=== PATIENT | female | born 1990 | race African-American/Black ===

== ENCOUNTER 2020-07-13 20:26 | Emergency (ER) | payer OTHER ==
[~2020-07-13] VITALS: Ht 160 cm; Wt 63.5 kg
[2020-07-13 21:48] VITALS: BP 107/72; TEMP 98.5
== END 2020-07-13 21:48 | disposition home or self-care (01) ==
LOC: ED 20:26
DX: T63.301A Toxic effect of unspecified spider venom, accidental (unintentional), initial encounter (principal); Y92.89 Other specified places as the place of occurrence of the external cause
CPT/HCPCS: 96372; 99283; J0696; J1885